=== PATIENT | female | born 1960 | race Caucasian/White ===

== ENCOUNTER 2018-05-25 21:19 | Emergency (ER) | payer BC ==
[~2018-05-25] VITALS: Ht 165.1 cm; Wt 63.2 kg
[2018-05-25 21:25] VITALS: Ht 165.1 cm; Wt 63.2 kg
[2018-05-25] MEDS ORDERED: CARDIZEM60 MG (21:28)
[2018-05-25] MEDS ORDERED: CYMBALTA60 MG PO (21:28)
[2018-05-25] MEDS ORDERED: LYRICA150 MG PO (21:28)
[2018-05-25] MEDS ORDERED: BUMETANIDE0.5 MG PO (21:29)
[2018-05-25 22:23] VITALS: BP 101/61
== END 2018-05-25 22:23 | disposition home or self-care (01) ==
LOC: D.ER 21:19
DX: S01.511A Laceration without foreign body of lip, initial encounter (principal); W18.30XA Fall on same level, unspecified, initial encounter; Y93.89 Activity, other specified; Y92.019 Unspecified place in single-family (private) house as the place of occurrence of the external cause; I10 Essential (primary) hypertension